=== PATIENT | female | born 1985 | race Caucasian/White ===

== ENCOUNTER 2021-05-07 16:30 | Emergency (ER) | payer OTHER, SELFPAY ==
[2021-05-07 16:34] VITALS: BP 160/88; PULSE 87; RESP 22; TEMP 36.4; O2SAT 100
--- NOTE | 2021-05-07 19:52 | ED.BACK ---
HPI - Back Pain/Injury General Chief Complaint: Back Pain/Injury Stated Complaint: severe back pain, lower shooting down into feet Time Seen by Provider: 05/07/21 19:40 Source: patient Mode of arrival: Ambulatory History of Present Illness HPI Narrative: Patient is a 36-year-old female who is here for evaluation of lower back discomfort. It is both sides with left being slightly worse than the right. She states that she does have some discomfort shooting down to her feet but this is not consistent. No abdominal pain. No urinary symptoms. No specific injury that caused the discomfort. She has seen her primary doctor for this. Does have a prescription for muscle relaxers but she states that it does make her very tired when she takes them. She has also seen a chiropractor. There is a referral in for her to see Physical therapy. She felt things were worsening today which brought her into the emergency department. Related Data Previous Rx's Medication Instructions Recorded prednisone 20 mg tablet 20 mg PO DAILY 7 Days #7 tab 05/07/21 Allergies Allergy/AdvReac Type Severity Reaction Status Date / Time No Known Drug Allergies Allergy Verified 05/07/21 20:16 Review of Systems Constitutional Constitutional: Denies fever(s) Cardiovascular Cardiovascular: Reports system reviewed and no additional complaints, except as documented Respiratory Respiratory: Reports system reviewed and no additional complaints, except as documented Gastrointestinal Gastrointestinal: Reports system reviewed and no additional complaints, except as documented Genitourinary Genitourinary: Reports system reviewed and no additional complaints, except as documented and Reports as per HPI Musculoskeletal Musculoskeletal: Reports system reviewed and no additional complaints, except as documented and Reports as per HPI Integumentary/Breasts Skin/Breast: Reports system reviewed and no additional complaints, except as documented Neurologic Neurologic: Reports system reviewed and no additional complaints, except as documented and Reports as per HPI Hematologic/Lymphatic On Anticoagulants: No Allergic/Immunologic Allergic/Immunologic: Reports system reviewed and no additional complaints, except as documented Patient History Medical History Healthy adult Exam Initial Vital Signs Initial Vital Signs: Vital Signs Temperature 97.5 F L 05/07/21 16:34 Pulse Rate 87 05/07/21 16:34 Respiratory Rate 22 05/07/21 16:34 Blood Pressure 160/88 H 05/07/21 16:34 Pulse Oximetry 100 05/07/21 16:34 Const General: cooperative, healthy appearing, comfortable and well developed Limitations: mental status not altered HENGA Head: normal to inspection and normocephalic Chest Chest: normal inspection of the chest Resp Effort & Inspection: normal respiratory effort Cardio Rate: regular rate GI Inspection: normal to inspection Back/Spine/Pelvis Thoracic/Lumbar Spine: paraspinal tenderness, No thoracic spinal tenderness and No lumbar spinal tenderness Skin Lesions: no lesions Rashes: no rashes Neuro General: patient alert, patient awake, patient oriented x3 and moves all extremities Extrem General: normal to inspection and capillary refill normal Psych Appearance: grossly normal and well kempt Course Orders Ordered: Discontinued Medications Ketorolac Tromethamine (Ketorolac 30 Mg/Ml Vial) 30 mg IV NOW ONE Stop: 05/07/21 19:53 Vital Signs Vital signs: Vital Signs - 8 hr 05/07/21 20:14 Pulse Rate 68 Blood Pressure 153/77 H Pulse Oximetry 100 MDM - Back Pain/Injury ECG Data Interpretation: Patient has no red flag symptoms that would make me concerned for cauda equina. No specific injury that make me concerned for fracture. No indication for radiologic studies. We did discuss conservative treatments at home to include anti-inflammatories. Will send home with a short course of steroids. She will continue with all of her current medical appointments and referrals. She was given return precautions. She expressed understanding and agreement. Discharge Plan Departure Patient Disposition: Home Clinical Impression: Strain of lumbar region Instructions: DI for Low Back Pain Activity Restrictions/Additional Instructions: Unfortunately there is no one specific medication that will make lower back pain better. It is a combination of medicines and the most important thing is time. Most back pain does get better but it does sometimes take weeks or months. I do recommend that you continue taking the anti-inflammatories such as Motrin/Naprosyn during the day. You can take the muscle relaxer at night. You were given a prescription for steroids. I suspect that this will help with your situation. Continue all of your scheduled medical appointments. Return to the emergency department for any new or worsening symptoms Prescriptions: New prednisone 20 mg tablet 20 mg PO DAILY 7 Days Qty: 7 RF: 0
[2021-05-07 20:14] VITALS: BP 153/77; PULSE 68; O2SAT 100
== END 2021-05-07 20:22 | disposition home or self-care (01) ==
PROVIDERS: Emergency Provider Emergency Medicine
DX: S39.012A Strain of muscle, fascia and tendon of lower back, initial encounter (principal); X58.XXXA Exposure to other specified factors, initial encounter
CPT/HCPCS: 99281

== ENCOUNTER 2022-12-31 15:09 | Emergency (ER) | payer OTHER, SELFPAY ==
[2022-12-31 15:26] VITALS: BP 147/91; PULSE 74; RESP 18; TEMP 37.3; O2SAT 100; BMI 31.9
--- NOTE | 2022-12-31 16:31 | DI.CT.S_ITS ---
PROCEDURE: CT ABDOMEN PELVIS W CON INDICATIONS: Lower abdominal pain, hx of R Ovarian cyst TECHNIQUE: After the administration of intravenous contrast, axial sections acquired from the lung bases to the pubic symphysis. Coronal and sagittal reformats were performed. For radiation dose reduction, the following was used: automated exposure control, adjustment of mA and/or kV according to patient size. COMPARISON: [facility], CT, CT ABDOMEN PELVIS WITH CONTRAST, 12/24/2022, 14:42. FINDINGS: Image quality: Excellent. Lung bases: Collapsed breast implants. Heart: No significant findings. ABDOMEN: Liver: Liver is enlarged and demonstrates diffusely decreased density without focal mass. Gallbladder: Surgically absent Biliary ducts: Unremarkable. Pancreas: Unremarkable. Spleen: Unremarkable. Adrenal Glands: Unremarkable. Kidneys and Ureters: Unremarkable. Stomach and Bowel: Stomach, small bowel loops, and colon are unremarkable. Normal appendix. Peritoneum: No abnormal intraperitoneal fluid. No free air. Ventral Wall: No change in fat containing umbilical hernia measuring 12 mm with internal fat stranding. Abdominal Nodes: No retroperitoneal or mesenteric adenopathy by size criteria. Vessels: Aorta and inferior vena cava are normal in size. PELVIS: Pelvic Organs: 50 mm diameter right adnexal cyst, increased in size. Bladder: Unremarkable. Pelvic Nodes: No enlarged lymph nodes. Miscellaneous: No hernias are seen. Bones: Unremarkable. IMPRESSION: 1. Fat containing umbilical hernia is present as before which contains internal fat stranding, as before, suggestive of strangulation. Clinical correlation recommended. 2. Increased right adnexal cyst. No further emergent imaging of this cyst is necessary at this time. Follow-up pelvic ultrasound in 6 weeks is recommended to ensure resolution, and to exclude underlying malignancy. 3. Normal appendix. 4. Hepatic steatosis. Dictated by: Cam Neal M.D. on 12/31/2022 at 17:55 Approved by: Cam Neal M.D. on 12/31/2022 at 17:58
[2022-12-31] MEDS: KETOROLAC 30 MG/ML VIAL 15 MG IV (16:42)
[2022-12-31] MEDS: ONDANSETRON 4 MG/2 ML INJ IV (16:42)
[2022-12-31 16:46] LABS: Add Manual Diff / Slide Review NO; Basophils Absolute Auto 100 /uL (0-100); Basophils Percent Auto 0.6 % (0-2); Eosinophils Absolute Auto 300 /uL (0-450); Eosinophils Percent Auto 2.9 % (2-4); Hematocrit 32.8 % (36-46); Hemoglobin 10.6 g/dL (12.0-16.0); Lymphocytes Absolute Auto 3400 /uL (1100-4500); Lymphocytes Percent Auto 39.2 % (25-40); Mean Corpuscular HGB Conc 32.4 % (30-36); Mean Corpuscular Hemoglobin 24.7 PG (26-34); Mean Corpuscular Volume 76.3 fL (80-100); Monocytes Absolute Auto 600 /uL (0-900); Monocytes Percent Auto 6.4 % (3-14); Neutrophils Absolute Auto 4400 /uL (1500-7000); Neutrophils Percent Auto 50.9 % (50-75); Platelet Count 279 X10^3/uL (150-400); Red Blood Cell Count 4.29 X10^6/uL (4.0-5.2); Red Cell Distribution Width 17.1 % (11.6-14.8); White Blood Cell Count 8.7 X10^3/uL (4.5-11.0)
[2022-12-31 17:01] LABS: Alanine Aminotransferase 56 IU/L (<35); Albumin 4.5 g/dL (3.5-5.0); Albumin Globulin Ratio 1.4 (1.0-2.8); Alkaline Phosphatase 80 U/L (38-126); Aspartate Aminotransferase 34 IU/L (14-36); BUN Creatinine Ratio 17.5 (6-22); Bilirubin Total 0.3 mg/dL (0.2-1.3); Blood Urea Nitrogen 11 mg/dL (7-17); Calcium 8.9 mg/dL (8.4-10.2); Carbon Dioxide 27 mmol/L (22-32); Chloride 102 mmol/L (98-107); Estimated Glomerular Filt Rate > 60 mL/min (>60); Globulin 3.2 g/dL (1.7-4.1); Glucose 81 mg/dL (70-100); HEMOLYSIS < 15 (0-50); Potassium 3.6 mmol/L (3.4-5.1); Sodium 138 mmol/L (137-145); Total Protein 7.7 g/dL (6.3-8.2)
[2022-12-31 17:28] LABS: Pregnancy Test Serum,Qual Negative (Negative)
[2022-12-31 18:13] VITALS: BP 163/85; PULSE 66; O2SAT 100
[2022-12-31 18:19] VITALS: BP 141/85; PULSE 72; RESP 14; TEMP 35.9; O2SAT 95
--- NOTE | 2022-12-31 18:29 | ED_ITS ---
HPI - Abdominal Pain <Garrett Ardon PA-C - Last Filed: 12/31/22 20:20> General Chief Complaint: Abdominal Pain Stated Complaint: Says right ovarian cyst, worsening pain Time Seen by Provider: 12/31/22 16:13 Source: patient Mode of arrival: Ambulatory History of Present Illness HPI narrative: This is a 37-year-old female presents to the emergency department complaining of primarily right lower quadrant abdominal pain. She states his she is had this for the last couple of weeks and was seen at the [facility] where she had a CT and ultrasound which showed a right-sided ovarian cyst. This was discussed with the OB which recommended no acute treatment but to follow up outpatient. Patient was also seen by her primary care provider who gave her IM Rocephin as well as doxycycline in the event that the pelvic pain she was experiencing was infectious in nature. She was taken as prescribed. She denies any vaginal discharge or bleeding. She denies any nausea, chest pain, shortness of breath, fevers, or any other concerning signs or symptoms. She states that the pain initially affected her right lower quadrant in his continued but she was beginning to notice some pain to her left lower quadrant as well. History of umbilical hernia repair 3 years ago. Related Data Allergies Allergy/AdvReac Type Severity Reaction Status Date / Time No Known Drug Allergies Allergy Verified 05/07/21 20:16 Review of Systems <Garrett Ardon PA-C - Last Filed: 12/31/22 20:20> Review of Systems Narrative: GENERAL: Denies chills, fatigue, malaise, fever, sweats. HEENT: Denies sinus pain, ear pain, sore throat, difficulty swallowing, dizziness. RESPIRATORY: Denies dyspnea, cough, wheezing, hemoptysis, sputum. CARDIOVASCULAR: Denies chest pain, palpitations, orthopnea, edema, GASTROINTESTINAL: Reports abdominal pain : Denies dysuria, frequency, incontinence, hematuria, urinary retention. MUSCULOSKELETAL: denies weakness, joint pain, or bony pain SKIN: Denies rash, skin lesions, or other NEUROLOGIC: Denies weakness, headache, numbness, change in speech, confusion, seizures, incoordination. PSYCHIATRIC: No concerning psychosocial issues. 12 point review of systems is negative except for those stated above Patient History <CLAUDIO Rich Last Filed: 12/31/22 20:20> Medical History Healthy adult Exam <CLAUDIO Rich Last Filed: 12/31/22 20:20> Narrative Exam Narrative: GENERAL: Well-developed patient, in mild distress. HEAD: Atraumatic. Normocephalic. EYES: Pupils equal round and reactive. Extraocular motions intact. No scleral icterus. No injection or drainage. ENT: Nose without bleeding, purulent drainage. Throat without erythema, tonsillar hypertrophy or exudate. Airway patent. NECK: Trachea midline. Non tender CARDIOVASCULAR: Regular rate and rhythm without murmurs, gallops, or rubs. RESPIRATORY: Clear to auscultation. Breath sounds equal bilaterally. No wheezes, rales, or rhonchi. GASTROINTESTINAL: Moderate tenderness to palpation to the right lower quadrant, mild tenderness to palpation to the epigastric and left lower quadrants as well. Nondistended EXTREMITIES: No edema or joint tenderness. BACK: Nontender without deformity or crepitance. No flank tenderness. NEURO: AOx3. SKIN: No rash or erythema of visible areas Initial Vital Signs Initial Vital Signs: Vital Signs Temperature 99.2 F 12/31/22 15:26 Pulse Rate 74 12/31/22 15:26 Respiratory Rate 18 12/31/22 15:26 Blood Pressure 147/91 H 12/31/22 15:26 Pulse Oximetry 100 12/31/22 15:26 Oxygen Delivery Method Room Air 12/31/22 15:26 <Tyree Panchal DO - Last Filed: 01/06/23 04:09> Initial Vital Signs Initial Vital Signs: Vital Signs Temperature 99.2 F 12/31/22 15:26 Pulse Rate 74 12/31/22 15:26 Respiratory Rate 18 12/31/22 15:26 Blood Pressure 147/91 H 12/31/22 15:26 Pulse Oximetry 100 12/31/22 15:26 Oxygen Delivery Method Room Air 12/31/22 15:26 Course <Garrett Ardon PA-C - Last Filed: 12/31/22 20:20> Orders Ordered: Discontinued Medications Ketorolac Tromethamine (Ketorolac 30 Mg/Ml Vial) 15 mg IV NOW ONE Stop: 12/31/22 16:31 Last Admin: 12/31/22 16:42 Dose: 15 mg Documented By: LIVAN Ondansetron HCl (Ondansetron 4 Mg/2 Ml Inj) 4 mg IV NOW ONE Stop: 12/31/22 16:40 Last Admin: 12/31/22 16:42 Dose: 4 mg Documented By: LIVAN Vital Signs Vital signs: Vital Signs - 8 hr 12/31/22 15:26 12/31/22 18:13 12/31/22 18:19 Temperature 99.2 F 96.7 F L Pulse Rate 74 66 72 Respiratory Rate 18 14 Blood Pressure 147/91 H 163/85 H 141/85 H Pulse Oximetry 100 100 95 Oxygen Delivery Method Room Air Room Air Room Air <Tyree Panchal DO - Last Filed: 01/06/23 04:09> Orders Ordered: Discontinued Medications Ketorolac Tromethamine (Ketorolac 30 Mg/Ml Vial) 15 mg IV NOW ONE Stop: 12/31/22 16:31 Last Admin: 12/31/22 16:42 Dose: 15 mg Documented By: LIVAN Ondansetron HCl (Ondansetron 4 Mg/2 Ml Inj) 4 mg IV NOW ONE Stop: 12/31/22 16:40 Last Admin: 12/31/22 16:42 Dose: 4 mg Documented By: LIVAN Vital Signs Vital signs: Vital Signs - 8 hr 12/31/22 15:26 12/31/22 18:13 12/31/22 18:19 Temperature 99.2 F 96.7 F L Pulse Rate 74 66 72 Respiratory Rate 18 14 Blood Pressure 147/91 H 163/85 H 141/85 H Pulse Oximetry 100 100 95 Oxygen Delivery Method Room Air Room Air Room Air MDM - Abdominal Pain <Garrett Ardon PA-C - Last Filed: 12/31/22 20:20> Lab Data 12/31/22 16:32 12/31/22 16:32 Labs: Lab Results 12/31/22 12/31/22 12/31/22 Range/Units 16:32 16:32 16:32 WBC 8.7 (4.5-11.0) X10^3/uL RBC 4.29 (4.0-5.2) X10^6/uL Hgb 10.6 L (12.0-16.0) g/dL Hct 32.8 L (36-46) % MCV 76.3 L (80-100) fL MCH 24.7 L (26-34) PG MCHC 32.4 (30-36) % RDW 17.1 H (11.6-14.8) % Plt Count 279 (150-400) X10^3/uL Neut % (Auto) 50.9 (50-75) % Lymph % (Auto) 39.2 (25-40) % Rhea % (Auto) 6.4 (3-14) % Eos % (Auto) 2.9 (2-4) % Baso % (Auto) 0.6 (0-2) % Neut # (Auto) 4400 (1377-8820) /uL Lymph # (Auto) 3400 (6656-1972) /uL Rhea # (Auto) 600 (0-900) /uL Eos # (Auto) 300 (0-450) /uL Baso # (Auto) 100 (0-100) /uL Sodium 138 (137-145) mmol/L Potassium 3.6 (3.4-5.1) mmol/L Chloride 102 (98-107) mmol/L Carbon Dioxide 27 (22-32) mmol/L BUN 11 (7-17) mg/dL Creatinine 0.63 (0.52-1.04) mg/dL Estimated GFR > 60 (>60) mL/min BUN/Creatinine Ratio 17.5 (6-22) Glucose 81 (70-100) mg/dL Calcium 8.9 (8.4-10.2) mg/dL Total Bilirubin 0.3 (0.2-1.3) mg/dL AST 34 (14-36) IU/L ALT 56 H (<35) IU/L Alkaline Phosphatase 80 (38-126) U/L Total Protein 7.7 (6.3-8.2) g/dL Albumin 4.5 (3.5-5.0) g/dL Globulin 3.2 (1.7-4.1) g/dL Albumin/Globulin Ratio 1.4 (1.0-2.8) Serum , Qual Negative (Negative) Imaging Data CT scan - abdomen/pelvis: Radiologist's Impression: [address] [address] [address] Scan Report Signed Patient: Denise Burgess MR#: [id number] : 1985 Acct:[id number] Age/Sex: 37 / F Date of Service: 12/31/22 Loc: ED Accession Number: [id number] ?? Procedure: CT abdomen pelvis w con Ordering Provider: Garrett Ardon P.A-C PROCEDURE:? CT ABDOMEN PELVIS W CON ? INDICATIONS:? Lower abdominal pain, hx of R Ovarian cyst ? TECHNIQUE:? After the administration of intravenous contrast, axial sections acquired from the lung bases to the pubic symphysis.? Coronal and sagittal reformats were performed.? For radiation dose reduction, the following was used:? automated exposure control, adjustment of mA and/or kV according to patient size.? ? COMPARISON:? [facility], CT, CT ABDOMEN PELVIS WITH CONTRAST, 12/24/2022, 14:42. ? FINDINGS:? Image quality:? Excellent.? ? Lung bases:? Collapsed breast implants. Heart:? No significant findings. ? ABDOMEN: Liver:? Liver is enlarged and demonstrates diffusely decreased density without focal mass. Gallbladder:? Surgically absent? ? Biliary ducts:? Unremarkable.? ? Pancreas:? Unremarkable.? ? Spleen:? Unremarkable.? ? Adrenal Glands:? Unremarkable.? ? Kidneys and Ureters:? Unremarkable.? ? ? Stomach and Bowel:? Stomach, small bowel loops, and colon are unremarkable.? Normal appendix. Peritoneum:? No abnormal intraperitoneal fluid.? No free air.? ? Ventral Wall: ? No change in fat containing umbilical hernia measuring 12 mm with internal fat stranding. Abdominal Nodes:? No retroperitoneal or mesenteric adenopathy by size criteria.? Vessels:? Aorta and inferior vena cava are normal in size.? ? PELVIS: Pelvic Organs:? 50 mm diameter right adnexal cyst, increased in size. Bladder:? Unremarkable.? ? Pelvic Nodes: No enlarged lymph nodes.? Miscellaneous: No hernias are seen. ? ? ? Bones:? Unremarkable.? IMPRESSION:? 1. Fat containing umbilical hernia is present as before which contains internal fat stranding, as before, suggestive of strangulation.? Clinical correlation recommended. 2. Increased right adnexal cyst.? No further emergent imaging of this cyst is necessary at this time.? Follow-up pelvic ultrasound in 6 weeks is recommended to ensure resolution, and to exclude underlying malignancy. 3. Normal appendix. 4. Hepatic steatosis. ? ? Dictated by: Cam Neal M.D. on 12/31/2022 at 17:55 ? ? Approved by: Cam Neal M.D. on 12/31/2022 at 17:58 ? MDM Narrative Medical decision making narrative: MDM * differential diagnosis includes but not limited to ovarian cyst, umbilical hernia, cholecystitis, appendicitis, gastroenteritis, ulcerative colitis * Prior records reviewed: Records were obtained from [facility] which showed the patient was recently seen with the CT findings showed right- sided ovarian cyst. Patient was eventually discharged with instructions to follow up with Ob outpatient. * My lab interpretation: CBC and CMP unremarkable. No evidence of acute infection. * My imgaing interpretation: CT showed evidence of a right-sided ovarian cyst as well as a fat containing umbilical hernia concerning for possible strangulation. * Clinical Decision Rules/Scores evaluated: None * Independent discussions with: None ED Course: This is a 37-year-old female presents to the emergency department due to continued right lower quadrant pain although she did state that she was being to feel in the left lower quadrant and umbilical area. This was discussed with the patient due to the acute changes in the pain a repeat CT was ordered. CT did show a fat containing umbilical hernia concerning for possible strangulation. This was discussed with on-call general surgery in, Dr. Castillo, who stated that the fat containing hernias or eventually expected to resolve without any acute emergent treatment. Suspect the pain in the right lower quadrant is the continued pain from the ovarian cyst. Roommate recommended a regimen of ibuprofen and patient had already been prescribed narcotics by a previous provider. Recommended continuing over this pain control plan until she is able follow-up with printed circuit board pcb designer as recommended. Shared Decision Making: Discussed plan with patient who is comfortable with the plan. Social Considerations: None Disposition: Discharged to home <Tyree Panchal DO - Last Filed: 01/06/23 04:09> Lab Data Labs: Lab Results 12/31/22 12/31/22 12/31/22 Range/Units 16:32 16:32 16:32 WBC 8.7 (4.5-11.0) X10^3/uL RBC 4.29 (4.0-5.2) X10^6/uL Hgb 10.6 L (12.0-16.0) g/dL Hct 32.8 L (36-46) % MCV 76.3 L (80-100) fL MCH 24.7 L (26-34) PG MCHC 32.4 (30-36) % RDW 17.1 H (11.6-14.8) % Plt Count 279 (150-400) X10^3/uL Neut % (Auto) 50.9 (50-75) % Lymph % (Auto) 39.2 (25-40) % Rhea % (Auto) 6.4 (3-14) % Eos % (Auto) 2.9 (2-4) % Baso % (Auto) 0.6 (0-2) % Neut # (Auto) 4400 (1152-0888) /uL Lymph # (Auto) 3400 (4226-6290) /uL Rhea # (Auto) 600 (0-900) /uL Eos # (Auto) 300 (0-450) /uL Baso # (Auto) 100 (0-100) /uL Sodium 138 (137-145) mmol/L Potassium 3.6 (3.4-5.1) mmol/L Chloride 102 (98-107) mmol/L Carbon Dioxide 27 (22-32) mmol/L BUN 11 (7-17) mg/dL Creatinine 0.63 (0.52-1.04) mg/dL Estimated GFR > 60 (>60) mL/min BUN/Creatinine Ratio 17.5 (6-22) Glucose 81 (70-100) mg/dL Calcium 8.9 (8.4-10.2) mg/dL Total Bilirubin 0.3 (0.2-1.3) mg/dL AST 34 (14-36) IU/L ALT 56 H (<35) IU/L Alkaline Phosphatase 80 (38-126) U/L Total Protein 7.7 (6.3-8.2) g/dL Albumin 4.5 (3.5-5.0) g/dL Globulin 3.2 (1.7-4.1) g/dL Albumin/Globulin Ratio 1.4 (1.0-2.8) Serum , Qual Negative (Negative) Discharge Plan Departure Patient Disposition: Home Clinical Impression: Ovarian cyst, Hernia, umbilical Activity Restrictions/Additional Instructions: Thank you for coming to the [facility] Emergency Department today. As we discussed you have the umbilical hernia. This was discussed with general surgery who states that this should improve over the next 7 days or so[address] The CT did show the right ovarian cyst which you are aware of. Please continue taking the ibuprofen as well as the other pain medications you were prescribed to help with the pain. I strongly recommended follow up with the business education professor as you have been attempting to for further management. I hope you feel better soon. Referrals: Sabiha Maharaj MD [Primary Care Provider] - Stand Alone Forms: Patient Portal/API <Tyree Panchal DO - Last Filed: 01/06/23 04:09> Cosign ED Attending Ravindraature Attestation: I was immediately available in the department for consultation. Documentation has been reviewed. I agree with assessment and plan.
== END 2022-12-31 18:42 | disposition home or self-care (01) ==
PROVIDERS: Emergency Provider Physician Assistant Medical; PCP Family Medicine
DX: N83.201 Unspecified ovarian cyst, right side (principal); K42.9 Umbilical hernia without obstruction or gangrene
CPT/HCPCS: 36415; 74177; 80053; 84703; 85025; 96374; 96375; 99284; J1885; J2405; Q9967